=== PATIENT | female | born 1990 | race Caucasian/White ===

== ENCOUNTER → 2019-12-12 14:46 | Outpatient (CLI) | payer OTHER, SELFPAY ==
[2019-12-12 15:30] LABS: Appearance Urine UA CLEAR; Bilirubin Urine UA NEGATIVE (NEGATIVE); Color Urine UA YELLOW; Glucose Urine UA NEGATIVE (Negative); Ketones Urine UA NEGATIVE (NEGATIVE); Leukocyte Esterase Urine UA NEGATIVE (NEGATIVE); Nitrite Urine UA NEGATIVE (Negative); Occult Blood Urine UA 3+ (Negative); Protein Urine UA NEGATIVE (Negative); Specific Gravity Urine UA 1.025 (1.000-1.035); Urobilinogen Urine UA 0.2 E.U./dL (0.2)
[2019-12-12 15:31] LABS: pH Urine UA 5.5 (4.5-8.0)
[2019-12-12 15:33] LABS: Bacteria Urine None Seen
[2019-12-12 15:36] LABS: Add Manual Diff / Slide Review NO; Basophils Absolute Auto 0 /uL (0-100); Basophils Percent Auto 0.2 % (0-2); Eosinophils Absolute Auto 100 /uL (0-450); Eosinophils Percent Auto 1.1 % (2-4); Hematocrit 34.9 % (36-46); Hemoglobin 12.5 g/dL (12.0-16.0); Lymphocytes Absolute Auto 2200 /uL (1100-4500); Lymphocytes Percent Auto 22.1 % (25-40); Mean Corpuscular HGB Conc 35.9 % (30-36); Mean Corpuscular Hemoglobin 31.7 PG (26-34); Mean Corpuscular Volume 88.3 fL (80-100); Monocytes Absolute Auto 400 /uL (0-900); Monocytes Percent Auto 4.1 % (3-14); Neutrophils Absolute Auto 7300 /uL (1500-7000); Neutrophils Percent Auto 72.5 % (50-75); Platelet Count 189 X10^3/uL (150-400); Red Blood Cell Count 3.95 X10^6/uL (4.0-5.2); Red Cell Distribution Width 12.6 % (11.6-14.8); White Blood Cell Count 10.1 X10^3/uL (4.5-11.0)
[2019-12-12 15:54] LABS: RBC Urine 1-5/HPF (0-5/HPF); Squamous Epithelial Cell Urine 0-1 /HPF (0-5/HPF); WBC Urine 0-1/HPF (0-5/HPF)
[2019-12-12 15:55] LABS: Amorphous Sediment Urine 1+; Culture Indicated Urine Cult Not Indicated; Mucus Urine 1+ (Negative)
[2019-12-12 16:40] LABS: Hepatitis B Surface Antigen NEGATIVE s/c (NEGATIVE); Rubella Antibody IgG 11.4 IU/mL (>15)
[2019-12-12 16:59] LABS: HIV 1 & 2 Ab/Ag 4th Gen Combo NEGATIVE (NEGATIVE); Hep C Virus Ab w/Reflex Quant NEGATIVE s/c (NEGATIVE)
[2019-12-13 05:36] LABS: RPR Screen Non Reactive (Non Reactive)
[2019-12-13 12:36] LABS: Varicella IgG Antibody 541 index (Immune >165)
== END ==
PROVIDERS: Referring Provider Obstetrics & Gynecology; Visit Provider Obstetrics & Gynecology
DX: Z34.81 Encounter for supervision of other normal pregnancy, first trimester (principal)
CPT/HCPCS: 36415; 80055; 81003; 81015; 86787; 86803; 86850; 86900; 86901; 87086; 87389

== ENCOUNTER → 2020-02-06 14:36 | Outpatient (CLI) | payer OTHER, SELFPAY ==
[2020-02-09 16:14] LABS: AFP, Serum 34.1 ng/mL (.); Calc Gestational Age Ultrasound (.); Estriol, Free 1.39 ng/mL (.); Inhibin A, Dimeric 189.63 pg/mL (.); Inhibin A, MoM 1.18 (.); Maternal Ethnicity Caucasian (.); Maternal Weight 156 lbs (.); Number of Fetuses No (.); OSBR Risk 1 IN 10000 (.); Results Report (.); Test Results *Screen Negative* (.); hCG, MoM 2.12 (.); hCG, Serum 69539 mIU/mL (.)
== END ==
PROVIDERS: Referring Provider Obstetrics & Gynecology; Visit Provider Obstetrics & Gynecology
DX: Z34.82 Encounter for supervision of other normal pregnancy, second trimester (principal); Z36.0 Encounter for antenatal screening for chromosomal anomalies; Z3A.17 17 weeks gestation of pregnancy
CPT/HCPCS: 36415; 82105; 82677; 84702; 86336

== ENCOUNTER → 2020-02-27 11:31 | Outpatient (CLI) | payer OTHER, SELFPAY ==
--- NOTE | 2020-02-27 11:33 | DI.US.S_ITS ---
PROCEDURE: US OB >= 14 WEEKS FETUS INDICATIONS: ANATOMY OUTSIDE/PRIOR DATING DATA: Last menstrual period (LMP): 10/12/19. LMP-based estimated date of delivery (ACTA): 07/18/20. First dating scan (date and location): 12/12/19. Estimated date of delivery (CATA) from first dating scan: 07/15/20. TECHNIQUE: Real-time scanning was performed of the fetus, with image documentation and biometric measurements. Endovaginal scanning: No COMPARISON: None. FINDINGS: General: A single living intrauterine gestation is present. Presentation: Vertex Placenta: Placental position is posterior, without previa. Amniotic fluid index: 12.1 cm, normal range is 5-24 cm. heart rate: 145 beats per minute. Maternal cervical canal: 6.9 cm long. Normal lower limit is 2.5 cm. biometrics: Biparietal diameter: 19 weeks 5 days Head circumference: 20 weeks 1 day Abdominal circumference: 20 weeks 6 days Femur length: 20 weeks 4 days Estimated gestational age from initial scan: 20 weeks 2 days Composite gestational age from present scan: 20 weeks 2 days Estimated weight and percentile: 364 g; 90th percentile Measurement variability for biometric dating: +/- 7 days from 14 weeks to 15 weeks 6 days gestation, +/- 10 days from 16 weeks to 21 weeks 6 days gestation, +/- 2 weeks from 22 weeks to 27 weeks 6 days gestation, +/- 3 weeks for 28 weeks gestation or later. weight reference: 4500 g or EFW >90/95% is considered macrosomia or large for gestational age. EFW <10% is small for gestational age. EFW 5% or less is considered intra-uterine growth restriction. Anatomic survey: Neuro: Ventricles are non-dilated at less than 10 mm. Cisterna magna is normal at 3-11 mm. Cerebellum is normal in size and morphology. Nuchal skin fold: Normal at less than 6 mm between 14-21 weeks gestational age. Face: Nose and lips, facial profile are normal. Spine: No evidence for spina bifida. Heart: 4-chambered heart is present, with normal ventricular outflow tracts. Diaphragm: Diaphragm is intact. Stomach: Left-sided stomach is present. Kidneys: No hydronephrosis. Normal is less than 5 mm in 2nd trimester, less than 7 mm in 3rd trimester. Cord: 3-vessel cord has orthotopic insertion. Bladder: Normal in size. Extremities: All 4 extremities identified. IMPRESSION: 1. Single living IUP redemonstrated and interval growth is upper limits of normal. 2. Normal anatomic survey. Dictated by: [facility] Interpreted: Joni Tejeda MD on 02/27/2020 at 14:08 Approved by: Joni Tejeda M.D. on 02/28/2020 at 13:07
== END ==
PROVIDERS: Referring Provider Obstetrics & Gynecology; Visit Provider Obstetrics & Gynecology
DX: Z34.82 Encounter for supervision of other normal pregnancy, second trimester (principal); Z3A.20 20 weeks gestation of pregnancy
CPT/HCPCS: 76811

== ENCOUNTER → 2020-04-10 16:11 | Outpatient (CLI) | payer OTHER, SELFPAY ==
[2020-04-10 18:43] LABS: Hematocrit 28.3 % (36-46)
[2020-04-10 19:44] LABS: GTT (PREG) 1 Hour PP 50gm Dose 107 mg/dL (76-139)
== END ==
PROVIDERS: PCP Obstetrics & Gynecology; Referring Provider Obstetrics & Gynecology; Visit Provider Obstetrics & Gynecology
DX: Z34.82 Encounter for supervision of other normal pregnancy, second trimester (principal); Z3A.26 26 weeks gestation of pregnancy
CPT/HCPCS: 36415; 82950; 85014; 85018

== ENCOUNTER 2020-04-30 14:56 | Outpatient (CLI) | payer OTHER, SELFPAY ==
[2020-04-30 15:38] LABS: Fetal Fibronectin Negative
--- NOTE | 2020-05-02 07:12 | PM.OBTRLD ---
Visit Information Visit Information Date of evaluation: 04/30/20 Primary OB Provider: Ana Mayer Reason for Evaluation: Yes pre-term labor Comments/Additional reasons for admission: Patient c/o ctx's in office. 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[employer] Smoking 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 smoker Evaluation Evaluation Baseline heart rate: 145 Variability: Moderate (11-25) monitor accelerations: Present monitor decelerations: Absent Category of Tracing: Reactive Cervical dilation (cm): 0 Cervical effacement (%): 0 station: -2 Laboratory results: Laboratory Tests 04/30/20 15:02 Fibronectin Negative Diagnosis, Plan/Disposition Final Diagnosis (1) contractions: Status: Acute (2) 29 weeks gestation of : Status: Acute Plan/Disposition Plan: Assessment: 30 year old at 29 weeks c/o contractions, no ctx's seen on monitor Plan: Discharge to home Follow up as scheduled Note to 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
== END 2020-04-30 15:33 | disposition home or self-care (01) ==
LOC: OB 05-03 10:26
PROVIDERS: PCP Obstetrics & Gynecology; Referring Provider Obstetrics & Gynecology; Visit Provider Obstetrics & Gynecology
DX: O47.03 False labor before 37 completed weeks of gestation, third trimester (principal); Z3A.29 29 weeks gestation of pregnancy
CPT/HCPCS: 59025; 82731; G0378; G0379

== ENCOUNTER → 2020-06-18 16:20 | Outpatient (CLI) | payer OTHER, SELFPAY ==
[2020-06-19 11:09] LABS: Strep Grp B PCR NEG for Grp B Strep
== END ==
PROVIDERS: PCP Obstetrics & Gynecology; Visit Provider Obstetrics & Gynecology
DX: Z34.83 Encounter for supervision of other normal pregnancy, third trimester (principal); Z3A.36 36 weeks gestation of pregnancy
CPT/HCPCS: 87086; 87653

== ENCOUNTER 2020-07-07 03:16 | Observation (INO) | payer OTHER, SELFPAY ==
[2020-07-07 04:22] LABS: COVID19 -Nasal RAPID Negative (Negative)
--- NOTE | 2020-07-07 17:06 | PM.OBHP.1 ---
OB HPI Date/Time Date of admission: 07/07/20 Date Patient Seen: 07/07/20 Time Patient Seen: 17:06 History of Present Condition Chief complaint: Observation of labor : 2 Para: 1 Estimated Date of Delivery: 07/15/20 Estimated Gestational Age (weeks): 38+6 Narrative: Junie Joyce is a 30 year old female 2 para 1 at 38 and 6 7th weeks gestation who has had a prodromal early labor. The patient is very uncomfortable and has not slept much. Indications Indication for induction OB: maternal discomfort (Prolonged early phase of labor) History of Present care: good care, initiated at week # (9), number of visits (12) and pounds weight gain (38) Dating criteria: LMP confirmed by 1st trimester US Ultrasounds: normal 1st trimester US and normal mid trimester US Obstetrical complications: none Medical complications: none Preadmission Labs Blood type: O (+) positive -: Antibody screen: negative, GBS status: negative, HBsAG: negative, HIV: negative and RPR/VDLR: negative -: Chlamydia screen: not detected and Gonorrhea screen: not detected -: Rubella: not immune and Varicella: immune HCT: 28.3 HCAB: reactive PAP: Normal Quad screen: Normal Urine: Negative 1 hr GTT: 107 Prior (ies) History: Evaluation Evaluation Baseline heart rate: 125 Variability: Moderate (11-25) monitor accelerations: Present monitor decelerations: Absent Contraction Frequency (minutes): 4 Uterine Contraction Intensity: Moderate Category of Tracing: Reactive Cervical dilation (cm): 3 Cervical effacement (%): 85 station: -1 Laboratory results: Laboratory Tests 07/07/20 03:40 COVID-19 PCR Negative [facility] Medical History (Updated 06/05/20 @ 11:26 by Ana Mayer MD) Chicken pox (Resolved ~1991) Eczema (Acute ~1990) Hand fracture, left (Acute ~2007) Scoliosis (Acute ~2008) (spontaneous vaginal delivery) (Acute) Surgical History (Updated 01/04/20 @ 19:27 by Yoselyn Herr) Status post LASIK surgery of both eyes (Acute ~2013) Social History (Updated 12/12/19 @ 10:15 by Jerrica Hess RN) marital status: number of children: 1 household members: spouse and children occupational status: employed current occupational exposures/hazards: Yes 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 Meds Home Medications and Allergies Home Medications Medication Instructions Recorded Confirmed Type prenat.vits,lucita,ftg-[id number] 1 tab PO DAILY 12/12/19 07/02/20 History pyridoxine (vitamin B6) PO 12/12/19 07/02/20 History betamethasone dipropionate 0.05 % 1 applictn TOP DAILY #15 gram 02/06/20 07/02/20 Rx topical ointment diphenhydramine HCl 50 mg capsule 50 mg PO BEDTIME 04/30/20 07/02/20 History Allergies Allergy/AdvReac Type Severity Reaction Status Date / Time No Known Drug Allergies Allergy Unverified 07/02/20 13:51 Exam Vital Signs (past 8 hours): Generally: A well-developed, well-nourished female, moderate distress secondary to the pain of contractions Lungs: Clear to auscultation bilaterally Cardiovascular: Regular rate and rhythm Fundal height: 39 cm Estimated weight: 7-1/2 lb Extremities: 1+ DTR, no edema Objective Labs Labs: Laboratory Results - last 24 hr 07/07/20 03:40 COVID-19 PCR Negative Assessment and Plan Assessment and Plan Assessment and Plan narrative: Assessment: 30-year-old 2 para 1 at 38 6 /7 weeks gestation with a prodromal early labor GBS negative Plan: Artificial rupture membranes with copious clear amniotic fluid Epidural Expected management to spontaneous vaginal delivery Time Spent with Patient Total time spent with greater than 50% in coordination of care (as documented) at patient's floor/unit and/or counseling patient:: 15-24 minutes
[2020-07-07 18:13] LABS: Add Manual Diff / Slide Review NO; Basophils Absolute Auto 0 /uL (0-100); Basophils Percent Auto 0.2 % (0-2); Eosinophils Absolute Auto 100 /uL (0-450); Eosinophils Percent Auto 0.9 % (2-4); Hematocrit 30.9 % (36-46); Hemoglobin 10.3 g/dL (12.0-16.0); Lymphocytes Absolute Auto 1700 /uL (1100-4500); Lymphocytes Percent Auto 14.6 % (25-40); Mean Corpuscular HGB Conc 33.2 % (30-36); Mean Corpuscular Hemoglobin 25.4 PG (26-34); Mean Corpuscular Volume 76.6 fL (80-100); Monocytes Absolute Auto 700 /uL (0-900); Monocytes Percent Auto 5.6 % (3-14); Neutrophils Absolute Auto 9400 /uL (1500-7000); Neutrophils Percent Auto 78.7 % (50-75); Platelet Count 190 X10^3/uL (150-400); Red Blood Cell Count 4.04 X10^6/uL (4.0-5.2); Red Cell Distribution Width 15.9 % (11.6-14.8)
== END 2020-07-07 10:00 | disposition home or self-care (01) ==
LOC: LABOR 03:28
PROVIDERS: Admitting Provider Obstetrics & Gynecology; PCP Obstetrics & Gynecology; Referring Provider Obstetrics & Gynecology; Visit Provider Obstetrics & Gynecology
DX: O63.0 Prolonged first stage (of labor) (principal); Z3A.38 38 weeks gestation of pregnancy
CPT/HCPCS: 59050; 85025; 86850; 86900; 86901; 87635; G0378; G0379

== ENCOUNTER 2020-07-07 17:17 | Inpatient (IN) | payer OTHER, SELFPAY ==
[2020-07-07] MEDS: LACTATED RINGERS 1,000 ML 100 ML IV ×2 (17:20→19:25)
[2020-07-07] MEDS: OXYTOCIN PREMIX 30 UNIT/500 ML PLAST..BAG IV (19:37)
[2020-07-07 20:28] VITALS: BP 124/65
--- NOTE | 2020-07-07 22:56 | P.PCNOB_ITS ---
Events: Labor Augmentation Labor & Delivery Delivery date: 07/07/20 Intrapartal events: Prolonged Latent Phase Cervical ripening method: none Induction method: AROM Delivery augmentation: pitocin Delivery monitor: external FHT and external uterine Route of delivery: Episiotomy description: None L&D Laceration Description: None Estimated blood loss (mL): 200 Anesthesia type: Epidural Complications: None Narrative: Patient was complete at 10:05 p.m.. She began pushing at 10:32 p.m.. At 10:44 p.m., a live male delivered spontaneously in the JOHN presentation. No nuchal cord. The remainder of the body delivered without difficulty and mom pulled baby up onto abdomen. When the cord stopped pulsing, the cord was double clamped and cut. Cord bloods were obtained. The placenta delivered intact with a three-vessel cord at 10:50 p.m.. Pitocin was given in the IV fluids. The fundus was massaged to firm. There were no lacerations noted. Estimated blood loss 200 cc. Epidural analgesia. . Apgars 8 at 1 minute and 9 at 5 minutes. Mom and stable to recovery. [place] Baby 1: gender: Male Presentation: vertex position: Right Occiput Anterior Placenta delivery description: Spontaneous cord vessel description: 3 Vessels score (1 min): 8 score (5 min): 9 Plan for aftercare: Mom and infant stable to recovery
[2020-07-08] MEDS: ACETAMINOPHEN 325 MG TABLET 650 MG PO ×3 (00:34→11:03)
[2020-07-08] MEDS: IBUPROFEN 600 MG TABLET PO ×3 (00:34→11:02)
[2020-07-08 05:45] LABS: Hematocrit 27.7 % (36-46); Hemoglobin 9.3 g/dL (12.0-16.0)
--- NOTE | 2020-07-08 09:17 | PM.OBDS.1 ---
Discharge Providers Provider Date of admission: 07/07/20 17:17 Discharge Date: 07/08/20 Consults: 07/08/20 23:00 Consult to [facility] Routine Comment: Discharge provider: Ana Mayer MD Summary Hospital Course Date Patient Seen: 07/08/20 Time Patient Seen: 09:17 Procedures: Artificial rupture of membranes Epidural analgesia Pitocin augmentation of labor Spontaneous vaginal delivery Hospital Course: Patient is a 30-year-old 2 para 2 who presented on July 07, 2020 for a prodromal latent phase of labor. Artificial rupture of membranes was performed at 3 cm. She received an epidural for pain management. Pitocin augmentation was started. She progressed to complete dilation and pushed for 12 minutes. She had a spontaneous vaginal delivery over an intact perineum. No lacerations. Her course was unremarkable. is going well. Peripartum Data Infant Delivery Method: Natural Vaginal Laceration Description: None Episiotomy description: None Procedures: Artificial rupture of membrane Epidural analgesia Pitocin augmentation of labor Spontaneous vaginal delivery complications: none 1: Gender: Male Disposition of : home Status at Discharge Cognitive/behavioral status at discharge: oriented Functional status at discharge: independent ambulation Overall status at discharge: patient is progressing back to baseline Time Spent with Patient Time attestation: Total time spent providing and/or coordinating discharge services: Time spent: Less than 30 minutes Objective Labs Result Diagrams: 07/08/20 05:35 Labs: Laboratory Results - last 24 hr 07/08/20 05:35 Hgb 9.3 L Hct 27.7 L Exam Vital Signs (past 8 hours): Generally: Patient walking around in room, no acute distress Fundus: Firm at U Extremities: Negative Homans, trace edema Discharge Plan Discharge Plan Patient Disposition: Home Provider Discharge Comment: Call with fever, chills, or bleeding vaginally more than a pad in an hour Discharge orders & Medications Prescriptions: Continued prenat.vits,lucita,[id number] Tablet 1 tab PO DAILY RF: 0 betamethasone dipropionate 0.05 % ointment 1 applictn TOP DAILY Qty: 15 RF: 0 Discontinued pyridoxine (vitamin B6) PO RF: 0 diphenhydramine HCl [Unisom SleepGels] 50 mg capsule 50 mg PO BEDTIME RF: 0 Follow up/Referrals: Ana Mayer MD [Physician] - 6 Weeks Diet/Activity/Treatments Diet: Regular Activity: Nothing in vagina until bleeding stops Skin/Wound/Dressing Care Report to your healthcare provider any signs of infection, such as:: chills, fever, increased pain and unusual drainage Visit Report/Discharge Packet Instructions: DI for Labor and Delivery, Vaginal
[2020-07-08] MEDS: DOCUSATE 100 MG CAPSULE PO (09:37)
[2020-07-08] MEDS: PRENATAL VIT,CALC/IRON/FOLIC 1 TABLET 1 TAB PO (09:37)
[2020-07-08 14:43] VITALS: BP 103/62; PULSE 69; RESP 16; TEMP 37.1
[2020-07-08] MEDS: MEASLES,MUMPS,RUBELLA VACC/PF 0.5 ML VIAL SUBCUT (17:17)
[2020-07-08] MEDS: LANOLIN OINT 7 GM 1 APPLIC TOP (17:19)
== END 2020-07-08 17:30 | disposition home or self-care (01) | DRG 807 ==
PROVIDERS: Admitting Provider Obstetrics & Gynecology; Referring Provider Obstetrics & Gynecology; Visit Provider Obstetrics & Gynecology
DX: O63.0 Prolonged first stage (of labor) (principal); Z37.0 Single live birth; Z3A.38 38 weeks gestation of pregnancy; O75.81 Maternal exhaustion complicating labor and delivery
CPT/HCPCS: 36415; 59050; 59400; 85014; 85018; 85025; 86850; 86900; 86901; 87635; G0378; G0379; J2590

== ENCOUNTER → 2024-11-30 16:33 | Outpatient (CLI) | payer OTHER, SELFPAY ==
--- NOTE | 2024-11-30 16:34 | DI.US.S_ITS ---
PROCEDURE: US PELVIC COMPLETE INDICATIONS: LOST IUD TECHNIQUE: Real-time scanning was performed of the pelvic organs, with image documentation. Additional endovaginal scanning was necessary due to incomplete visualization of the adnexal and endometrial structures by transabdominal scanning. COMPARISON: None. FINDINGS: Uterus: 9.3 x 4.2 x 5.6 cm. Anteverted positioning. Small fundal calcifications. IUD is seen within the endometrial body. The strings are within the cervix. Ovaries: Nonenlarged bilaterally. Probable collapsed cyst in the right ovary. Overall right ovary measures 10 cc. Left ovary measures 4 cc. A follicular cyst is present measuring 1.5 x 1.9 cm. Other: No pathologic free abdominal or pelvic fluid. IMPRESSION: IUD is seen in proper position. The strings are in the cervix. Dictated by: Manjinder Rivera M.D. on 11/30/2024 at 18:40 Approved by: Manjinder Rivera M.D. on 11/30/2024 at 18:41
== END ==
PROVIDERS: Referring Provider Family Medicine; Visit Provider Family Medicine
DX: T83.32XA Displacement of intrauterine contraceptive device, initial encounter (principal); N83.02 Follicular cyst of left ovary
CPT/HCPCS: 76830; 76856